=== PATIENT | male | born 1950 | race African-American/Black ===

== ENCOUNTER 2018-02-19 12:24 | Observation (INO) ==
[2018-02-19] MEDS ORDERED: NITROGLYCERIN 2% OINT 1 INCH/GM PACK TOP STA (12:41)
[2018-02-19] MEDS ORDERED: HYDROmorphone 2 MG/1 ML VIAL ONE (12:41)
[2018-02-19] MEDS ORDERED: ASPIRIN 325 MG TABLET PO STA (12:41)
[2018-02-19] MEDS ORDERED: MIDAZOLAM 2 MG/2 ML VIAL ONE (12:41)
[2018-02-19] MEDS ORDERED: LIDOCAINE 1% 20 ML VIAL ONE (12:41)
[2018-02-19] MEDS ORDERED: NITROGLYCERIN SL 0.4 MG TABLET SL PRN (12:41)
[2018-02-19] MEDS ORDERED: METOPROLOL TARTRATE 5 MG/5 ML VIAL IV STA (12:41)
[2018-02-19] MEDS ORDERED: METOPROLOL TARTRATE 5 MG/5 ML VIAL IV ONE (12:43)
[2018-02-19] MEDS ORDERED: NITROGLYCERIN 2% OINT 1 INCH/GM PACK TOP ONE (12:43)
[2018-02-19] MEDS ORDERED: ASPIRIN 325 MG TABLET ONE (12:44)
[2018-02-19] MEDS ORDERED: ENOXAPARIN 100 MG/ML SYRINGE SUBCUT STA ×2 (12:45→12:48)
[2018-02-19] MEDS ORDERED: ENOXAPARIN 30 MG/0.3 ML SYRINGE ONE (12:49)
[2018-02-19 13:01] LABS: Basophils % 0.5 % (0.0-0.8); Eosinophils # 0.1 10*3/uL (0.0-0.87); Eosinophils % 1.5 % (0.00-10.9); Hematocrit 48.4 VOL% (42.0-52.0); Hemoglobin 15.7 GM/DL (14.0-18.0); Immature Granulocytes % 0.3 %; Immature Granulocytes Absolute 0.02 #; Lymphocytes # 1.8 10*3/uL (1.4-4.0); Lymphocytes % 23.3 % (21.2-54.2); Mean Corpuscular HGB Conc 32.4 GM/DL (32-36); Mean Corpuscular Hemoglobin 30 PG (27-34); Mean Corpuscular Volume 93.4 FL (87-102); Mean Platelet Volume 13.2 FL (9.6-12.0); Monocytes # 0.7 10*3/uL (0.11-0.8); Monocytes % 8.7 % (1.7-12.7); Neutrophils # 5.2 10*3/uL (1.4-7.4); Neutrophils % 65.7 % (38.7-73.9); Red Blood Count 5.18 MC/CUMM (3.8-5.5); Red Cell Distribution Width 13.6 % (9.3-17.3); White Blood Count 7.9 T/CUMM (4-12)
[2018-02-19 13:04] LABS: Platelet Count 92 T/CUMM (130-400)
[2018-02-19] MEDS ORDERED: LACTULOSE 20 GM/30 ML UDCUP PO PRN (13:08)
[2018-02-19] MEDS ORDERED: DOCUSATE SODIUM 100 MG CAPSULE PO PRN (13:08)
[2018-02-19] MEDS ORDERED: PROMETHAZINE 25 MG TABLET PO PRN (13:08)
[2018-02-19] MEDS ORDERED: ONDANSETRON 4 MG/2 ML VIAL IV PRN (13:08)
[2018-02-19] MEDS ORDERED: POTASSIUM CHLORIDE 20 MEQ TABLET PO PRN (13:08)
[2018-02-19] MEDS ORDERED: ACETAMINOPHEN 325 MG TABLET PO PRN (13:08)
[2018-02-19] MEDS ORDERED: ZALEPLON 5 MG CAPSULE PO PRN (13:08)
[2018-02-19] MEDS ORDERED: MAGNESIUM SULF RIDER 4 GM in PREMIX 1 EACH IV PRN (13:08)
[2018-02-19] MEDS ORDERED: MAGNESIUM SULF RIDER 2 GM in PREMIX 1 EACH IV PRN (13:08)
[2018-02-19 13:20] LABS: Calcium 9.1 MG/DL (8.5-10.1); Potassium 4.5 MMOL/L (3.5-5.1)
[2018-02-19 13:25] LABS: Hypochromasia 1+; Platelet Estimate Decreased
[2018-02-19] MEDS ORDERED: ALUM/MAG/SIMETH/LIDO VISC 1:1 30 ML BOTTLE PO STA (14:04)
[2018-02-19 14:51] LABS: Apearance,Urine CLEAR (Clear); Bilirubin,Urine Negative (Negative); Blood, Urine Negative (Negative); Glucose,Urine (UA) Negative (Negative); Ketones,Urine Negative (Negative); Mucus,Urine Occasional /LPF (Occasional); Nitrite,Urine Negative (Negative); Protein,Urine Negative; RBC,Urine 7 /HPF (0-4); Squamous Epithelial Cell,Urine Occasional /HPF (0-10); Urine Color Yellow (Yellow); WBC,Urine 35 /HPF (0-6)
[2018-02-20 04:45] LABS: Basophils % 0.7 % (0.0-0.8); Eosinophils # 0.1 10*3/uL (0.0-0.87); Eosinophils % 1.7 % (0.00-10.9); Hematocrit 44.8 VOL% (42.0-52.0); Hemoglobin 14.8 GM/DL (14.0-18.0); Immature Granulocytes % 0.2 %; Immature Granulocytes Absolute 0.01 #; Lymphocytes # 1.7 10*3/uL (1.4-4.0); Lymphocytes % 28.3 % (21.2-54.2); Mean Corpuscular Hemoglobin 31 PG (27-34); Mean Corpuscular Volume 93.1 FL (87-102); Monocytes # 0.6 10*3/uL (0.11-0.8); Monocytes % 9.3 % (1.7-12.7); Neutrophils # 3.6 10*3/uL (1.4-7.4); Neutrophils % 59.8 % (38.7-73.9); Platelet Count 87 T/CUMM (130-400); Red Blood Count 4.81 MC/CUMM (3.8-5.5); Red Cell Distribution Width 13.8 % (9.3-17.3)
[2018-02-20 05:14] LABS: Band Neutrophils 1 % (0-10); Lymphocytes 42 % (20-55); Macrocytosis 1+; Platelet Estimate Decreased; Segmented Neutrophils 55 % (50-85); Total Cells Counted 100
[2018-02-20 05:17] LABS: Calcium 8.5 MG/DL (8.5-10.1)
[2018-02-20 05:18] LABS: Risk Ratio 3.18; Thyroid Stimulating Hormone 0.77 uIU/ml (0.358-3.74); VLDL CHOLESTEROL 12.6 MG/DL
[2018-02-20 08:08] VITALS: BP 163/78
[2018-02-20] MEDS ORDERED: cefTRIAXone 1,000 MG in SYRINGE 1 EACH IV ONE (08:46)
[2018-02-20] MEDS ORDERED: PANTOPRAZOLE 40 MG TABLET PO SCH (09:00)
[2018-02-20] MEDS ORDERED: amLODIPine 5 MG TABLET PO SCH (10:00)
[2018-02-20] MEDS ORDERED: NICOTINE 21 MG/24 HR PATCH TRANSDERM SCH (10:00)
== END 2018-02-20 11:40 | disposition home or self-care (01) ==
LOC: N.ED 12:24 → N.EDINP 12:24 → N.TELEN 14:35
PROVIDERS: ADMIT Internal Medicine Cardiovascular Disease; ATTEND Internal Medicine Cardiovascular Disease